=== PATIENT | female | born 1945 | race Caucasian/White ===

== ENCOUNTER 2019-06-22 06:38 | Inpatient (IN) ==
[2019-06-16 17:50] LABS: Basophils # (Auto) 0 K/mcL (0.0-0.3); Basophils % (Auto) 0.3 % (0.0-2.0); Eosinophils # (Auto) 0.2 K/mcL (0.0-0.7); Eosinophils % (Auto) 3.1 % (0.0-7.0); Granulocytes % (Auto) 61.6 % (38.0-78.0); Hematocrit 36.6 % (36.0-48.0); Hemoglobin 12.2 g/dL (12.0-15.0); Lymphocytes # (Auto) 1.8 K/mcL (1.5-4.8); Lymphocytes % (Auto) 28.9 % (15.5-49.0); Mean Cell Volume 89.3 fL (80.0-100.0); Mean Corpuscular HGB Conc 33.3 g/dL (31.0-36.0); Mean Platelet Volume 10.1 fL (7.4-10.4); Monocytes # (Auto) 0.4 K/mcL (0.1-0.9); Monocytes % (Auto) 6.1 % (1.0-12.0); Platelet Count 135 K/mcL (140-440); Red Cell Distribution Width 14.3 % (11.5-14.5); WBC 6.1 K/mcL (4.5-11.0)
[2019-06-16 17:57] LABS: Blood Urea Nitrogen 15 mg/dl (8-23); Calcium 9.6 mg/dl (8.6-10.4); Carbon Dioxide 32 mmol/L (22-30); Chloride 99 mmol/L (96-108); Glomerular Filtration Rate 103; Glucose 98 mg/dL (70-105)
[2019-06-16 18:05] LABS: Estimated Average Glucose(eAG) 111 mg/dL; Hemoglobin A1C 5.5 % HGB (4.0-6.0)
[2019-06-16 18:36] LABS: Appearance,Urine HAZY; Bacteria,Urine 0 /hpf (0); Bilirubin,Urine NEG (NEG); Color,Urine YELLOW; Culture Indicated,Urine NO; Glucose,Urine (UA) NEGATIVE (NEG); Ketones,Urine NEG (NEG); Leukocyte Esterase,Urine 250 /uL (NEG); Mucus,Urine FEW /hpf (0); Nitrate,Urine NEG (NEG); Protein,Urine 30 mg/dL (NEG); Specific Gravity,Urine 1.023 (1.000-1.035); Urine Blood NEG mg/dL (<0.03); Urine Hyaline Cast 5 /lpf (0-2); Urine RBC 4 /hpf (0-1); Urine Squamous Epithelial Cell 14 /hpf (0-4); Urine Transitional Epi Cells < 1 /hpf (0-2); Urine WBC 17 /hpf (0-4)
[~2019-06-22 06:38] MED LIST: 0.9 % SODIUM CHLORIDE 9 ML, KETOROLAC 30 MG, ROPIVACAINE HCL/PF 49.5 ML, EPINEPHrine 0.... IJ SCH; CELECOXIB 200 MG CAPSULE PO SCH; IPRATROPIUM/ALBUTEROL 3 ML AMPUL.NEB NEB PRN; PREGABALIN 75 MG CAPSULE PO SCH; SCOPOLAMINE 1 PATCH PATCH TOPICAL PRN; ceFAZolin 2 GM in DEXTROSE 5% IN WATER 50 ML IV SCH; oxyCODONE 10 MG TAB.ER.12H PO SCH
[2019-06-22 09:29] LABS: Appearance,Urine CLOUDY; Bilirubin,Urine NEG (NEG); Color,Urine YELLOW; Culture Indicated,Urine NO; Glucose,Urine (UA) NEGATIVE (NEG); Ketones,Urine NEG (NEG); Leukocyte Esterase,Urine NEG /uL (NEG); Nitrate,Urine NEG (NEG); Protein,Urine NEG (NEG); Urine Blood NEG mg/dL (<0.03)
[2019-06-22] MEDS ORDERED: PROPOFOL 200 MG/20 ML VIAL IV ONE (13:40)
[2019-06-22] MEDS ORDERED: ONDANSETRON 4 MG/2 ML VIAL IV ONE (13:40)
[2019-06-22] MEDS ORDERED: KETAMINE 100 MG/ML ML IV ONE (13:40)
[2019-06-22] MEDS ORDERED: LIDOCAINE HCL/PF 100 MG/5 ML SYRINGE IV ONE (13:40)
[2019-06-22] MEDS ORDERED: ROPIVACAINE HCL/PF 20 ML VIAL IJ ONE (13:40)
[2019-06-22] MEDS ORDERED: ePHEDrine 50 MG/ML AMPUL IV ONE (13:40)
[2019-06-22] MEDS ORDERED: DEXAMETHASONE 10 MG/ML VIAL IV ONE (13:40)
[2019-06-22] MEDS ORDERED: TRANEXAMIC ACID 1,000 MG/10 ML VIAL IV ONE ×2 (13:40→15:06)
[2019-06-22] MEDS ORDERED: LACTATED RINGERS 250 ML IV PRN (15:05)
[2019-06-22] MEDS ORDERED: ACETAMINOPHEN 1,000 MG/100 ML BOTTLE IV ONE (15:05)
[2019-06-22] MEDS ORDERED: ONDANSETRON 4 MG/2 ML VIAL IV PRN ×2 (15:05→15:06)
[2019-06-22] MEDS ORDERED: NALOXONE HCL 0.4 MG/ML VIAL IV PRN (15:05)
[2019-06-22] MEDS ORDERED: MEPERIDINE 25 MG/ML SYRINGE IV PRN (15:05)
[2019-06-22] MEDS ORDERED: fentaNYL 100 MCG/2 ML VIAL IV PRN (15:05)
[2019-06-22] MEDS ORDERED: diphenhydrAMINE 50 MG/ML VIAL IV PRN (15:05)
[2019-06-22] MEDS ORDERED: BENZOCAINE/MENTHOL 1 LOZENGE PO PRN ×2 (15:05→15:06)
[2019-06-22] MEDS ORDERED: PROMETHAZINE 25 MG/ML VIAL IV PRN (15:05)
[2019-06-22] MEDS ORDERED: IPRATROPIUM/ALBUTEROL 3 ML AMPUL.NEB NEB PRN (15:05)
[2019-06-22] MEDS ORDERED: FLUMAZENIL 0.1 MG/ML ML IV PRN (15:05)
[2019-06-22] MEDS ORDERED: POLYETHYLENE GLYCOL 3350 17 GM PACKET PO PRN (15:06)
[2019-06-22] MEDS ORDERED: FLEETS ADULT ENEMA PR PRN (15:06)
[2019-06-22] MEDS ORDERED: MAGNESIUM HYDROXIDE 30 ML ORAL.SUSP PO PRN (15:06)
[2019-06-22] MEDS ORDERED: BISACODYL 10 MG SUPP.RECT PR PRN (15:06)
--- NOTE | 2019-06-22 15:06 | Brief Operative Note ---
Date of procedure: 06/22/19 Pre-op diagnosis: R knee severe DJD Post-op diagnosis: same Procedure: Right robotic assisted total knee arthroplasty Grafts/Implants: Yes (Asael Triathlon 4 CR femur, 4 tibia, 11mm CS insert, 33 patella) Anesthesia: spinal, GLMA Findings: severe arthritis Complications: none Surgeon: Fernando Sena Mobile Game Engineer: Zheng Driscoll Estimated blood loss (cc): 30 Specimens Removed/Pathology: none sent Condition: stable Disposition: PACU
[2019-06-22] MEDS ORDERED: LACTATED RINGERS 1,000 ML IV SCH (15:15)
--- NOTE | 2019-06-22 16:17 | XRay Report ---
CLINICAL INFORMATION: Post-op total knee. COMPARISON: None. FINDINGS: Total knee prostheses is anatomically aligned. No osseous abnormality. Periarticular gas and soft tissue swelling seen as expected. IMPRESSION: Negative Interpreted and Authenticated by: Ulysses Thompson 06/22/19
--- NOTE | 2019-06-22 16:46 | Operative Note ---
DATE OF OPERATION: 06/22/2019 PREOPERATIVE DIAGNOSIS: Right severe knee osteoarthritis. POSTOPERATIVE DIAGNOSIS: Right severe knee osteoarthritis. PROCEDURE PERFORMED: Right robotic-assisted total knee arthroplasty placing a Asael Triathlon size 4 cruciate retaining femoral component, size 4 tibial baseplate, an 11 mm CS tibial insert with a 33 mm patellar button. SURGEON: Fernando Sena M.D. STAPLER HAND: Billy Driscoll PA-C. The PA's assistance was required for the safe and efficient completion of the entire case. This provider's expertise and technical skill were required throughout the case. The PA assisted with preoperative coordination, intraoperative retraction, wound closure, dressing and splint application, as well as postoperative documentation and care coordination. ANESTHESIA: Spinal plus general. DRAINS: None. SPECIMENS: Bone cuts which were discarded. BLOOD LOSS: 50 mL. COMPLICATIONS: None. POSTOPERATIVE CONDITION: Stable. INDICATIONS FOR SURGERY: This is a 73-year-old female with longstanding right-sided knee pain. Radiographs showed severe [id number] osteoarthritis. FINDINGS AT SURGERY: Severe arthritis. Post implantation showed good limb alignment, joint stability, and patellar tracking. PROCEDURE IN DETAIL: The patient had been seen preoperatively. Informed consent had been obtained after discussion of risks and benefits of surgery. Risks including, but not limited to, bleeding, possibly requiring transfusion; infection, possibly requiring implant removal and prolonged IV antibiotics; injury to nerves, blood vessels, and other surrounding structures; anesthetic risks; incomplete or no resolution of symptoms; swelling; stiffness; pain; instability; DVT and pulmonary embolus risks; and the possibility of needing further revision joint surgery. She understood and wished to proceed. Correct operative site was marked in preoperative holding, and patient was taken to the operating room and general anesthesia was induced. The right lower knee was then prepped and draped in normal sterile fashion, and a time-out was performed verifying patient name, operative site, and plan. Ioban was placed over all skin surfaces and an Esmarch was used to exsanguinate the extremity, and tourniquet was inflated to 350 mmHg. A midline incision was made with a scalpel through skin and subcutaneous tissue, then Irrisept was irrigated and a medial parapatellar arthrotomy was made, and then a subperiosteal exposure was done of the anterior medial tibia. Anterior horns of the menisci removed, as well as retropatellar fat pad. ACL was transected. We then did a resection of the patella freehand, premeasuring thickness and then placing a cut protector after. We then placed our femoral and tibial checkpoints, and then a scalpel was used to make two stab incisions over the femur and two over the tibia and bicortical pins placed. The arrays were connected. The green probe was used to identify medial and lateral malleoli and double-checks were made with the green probe of the femoral and tibial check points. Blue probe was then used to do our mapping. A rongeur was used to remove osteophytes. We then used the spoons to check our flexion-extension gaps and made adjustments to get as close to 17 mm gaps on all four numbers as possible. Once this was completed, we then used the robotic arm to make our bone cuts. The tibia was prepared with the boss reamer and keel punch and externally rotated as bone coverage would allow. A keeled tibial trial was placed, and the femur was elevated. Curved osteotome and curet were used to remove posterior osteophytes. Femoral trial was then impacted and pinned into place. This was placed flush along the lateral cortex of the femur and then peg holes were drilled. A 9 insert trial was placed and then the knee was taken into extension. We then prepared the patella medializing maximally and sized this to a 33 patella. We then checked the patellar tracking and it was stable. We then removed trial implants. Definitive implants were opened while the joint was irrigated with Irrisept. After waiting a minute, we pulse lavaged with saline. Antibiotic cement was mixed and then the cancellous bone surfaces were dried with the CO2 gun. We then cemented the tibia, followed by the femur. Excess cement was removed, and the trial insert was placed, and the knee was taken into extension. The patella was then cemented. After excess cement was removed, we filled the joint with Irrisept. The tibial and femoral check points were removed. The extension was checked and then we removed our arrays and our pins. We injected pain cocktail in the pericapsular and subcutaneous tissues. Once cement had fully hardened, we flexed the knee up. We removed the insert trial, injected pain cocktail in the posteromedial capsule. We then opened an 11 mm CS insert, and this was carefully impacted and verified to be fully seated. The knee was then placed in extension and filled with Irrisept. After a minute it was copiously pulse lavaged with saline. We then flexed the knee to 45 degrees of flexion. A #2 FiberWire [id number] was used around the superior quadrant of the patella, #1 Vicryl [id number] around the inferior quadrant. Running #1 Vicryl was used for patellar tendon and quad tendon. Final Irrisept irrigation was done, after a minute final pulse lavage, and then 2-0 Monocryl was used for subcutaneous and sruthi for skin. Xeroform and sterile dressing were applied. Tourniquet was released. The patient was awakened, extubated, and transferred to recovery in stable condition. [email or web address] Job ID: [id number] Doc ID: [id number] Fernando Sena MD
[2019-06-22] MEDS: KETOROLAC 15 MG/ML VIAL IV SCH ×2 (17:40→23:57)
[2019-06-22] MEDS: 0.9 % SODIUM CHLORIDE 1,000 ML IV SCH (17:41)
[2019-06-22] MEDS: SIMVASTATIN 40 MG TABLET PO SCH (20:51)
[2019-06-22] MEDS: oxyCODONE/APAP 5/325MG TABLET PO PRN (20:51)
[2019-06-22] MEDS: ASPIRIN 325 MG ENTERIC COATED TABLET PO SCH (20:51)
[2019-06-22] MEDS: PREGABALIN 150 MG CAPSULE PO SCH (20:51)
[2019-06-22] MEDS: ceFAZolin 1 GM VIAL IV SCH (20:51)
[2019-06-22] MEDS: SENNOSIDES 1 TABLET PO SCH (20:51)
[2019-06-22] MEDS: DOCUSATE SODIUM 100 MG CAPSULE PO SCH (20:51)
[2019-06-22] MEDS: 0.9 % SODIUM CHLORIDE 10 ML SYRINGE IV SCH (20:52)
[2019-06-23] MEDS: 0.9 % SODIUM CHLORIDE 1,000 ML IV SCH ×2 (00:29→13:04)
[2019-06-23] MEDS: oxyCODONE/APAP 5/325MG TABLET PO PRN ×6 (00:48→23:42)
[2019-06-23] MEDS: 0.9 % SODIUM CHLORIDE 10 ML SYRINGE IV SCH ×3 (04:30→21:19)
[2019-06-23] MEDS: ceFAZolin 1 GM VIAL IV SCH (04:30)
[2019-06-23] MEDS: KETOROLAC 15 MG/ML VIAL IV SCH ×4 (06:02→23:37)
--- NOTE | 2019-06-23 07:47 | Orthopedic Progress Note ---
Orthopedics - Auxillary Note - Subjective Patient Information: Note initiated : 06/23/19 at 7:45 am Service Date, if different from initiated Date: [] Patient: Myesha Zepeda 73 y/o F admitted on 06/22/19 for Right Total Knee Arthroplasty Michael. Chief Complaint: Pt doing well, mild pain. Bandages C/D/I NVI-distal Vital Signs Temp Pulse Resp BP Pulse Ox 06/23/19 04:00 98.4 F 74 22 128/65 95 06/23/19 00:00 98.0 F 86 24 H 108/62 89 L 06/22/19 21:22 97.9 F 82 18 144/75 96 06/22/19 20:52 92 H 124/71 93 06/22/19 19:52 77 138/72 94 06/22/19 18:52 77 150/77 94 06/22/19 18:12 78 148/74 96 06/22/19 17:43 82 139/65 96 06/22/19 17:15 70 18 149/89 99 06/22/19 17:00 67 18 148/65 98 06/22/19 16:30 76 16 151/75 98 06/22/19 16:15 97.0 F 63 16 131/63 96 06/22/19 15:55 97.1 F 63 14 129/46 99 06/22/19 15:40 97.0 F 68 16 128/65 99 06/22/19 15:35 72 12 130/60 100 06/22/19 15:30 74 14 156/61 98 06/22/19 15:24 98.1 F 76 17 154/67 98 06/22/19 08:00 97.6 F 18 128/70 93 Intake and Output 06/22/19 06/23/19 06/23/19 21:59 05:59 13:59 Intake Total 2550 728 Output Total 400 600 Balance 2150 128 Intake: IV 150 528 Sodium Chloride 0.9% 1,000 ml @ 528 100 mls/hr IV .Q10H HERIBERTO Rx#: [id number] Ancef 2 gm In Dextrose 5% in 50 Water 50 ml @ 100 mls/hr IV PREOP HERIBERTO Rx#:[id number] Oral 800 200 IV - Manual Only 1600 Output: Void Amount 400 600 Other: Meal Dinner Percent of Meal Consumed 100% Urine Appearance Clear Clear Urine Color Dark Yellow Dark Yellow Weight 258 lb 6.4 oz Laboratory Results - last 24 hr 06/22/19 09:15 Urine Color Yellow Urine Appearance Cloudy Urine pH 5.0 Ur Specific [place] 1.020 Urine Protein Neg Urine Glucose (UA) Negative Urine Ketones Neg Urine Occult Blood Neg Urine Nitrate Neg Urine Bilirubin Neg Urine Urobilinogen 2.0 A Ur Leukocyte Esterase Neg Ur Culture Indicated? No s/p R TKA-stable mobilize with PT. tentative discharge 1-2 days
[2019-06-23] MEDS: FUROSEMIDE 40 MG TABLET PO SCH (09:11)
[2019-06-23] MEDS: LOSARTAN 50 MG TABLET PO SCH (09:11)
[2019-06-23] MEDS: ASCORBIC ACID 500 MG TABLET PO SCH (09:11)
[2019-06-23] MEDS: DOCUSATE SODIUM 100 MG CAPSULE PO SCH ×2 (09:11→21:19)
[2019-06-23] MEDS: ASPIRIN 325 MG ENTERIC COATED TABLET PO SCH ×2 (09:11→21:19)
[2019-06-23] MEDS: PREGABALIN 150 MG CAPSULE PO SCH ×2 (09:11→21:19)
[2019-06-23] MEDS: SIMVASTATIN 40 MG TABLET PO SCH (21:19)
[2019-06-23] MEDS: SENNOSIDES 1 TABLET PO SCH (21:19)
[2019-06-24] MEDS: KETOROLAC 15 MG/ML VIAL IV SCH ×2 (05:52→12:18)
[2019-06-24] MEDS: 0.9 % SODIUM CHLORIDE 10 ML SYRINGE IV SCH (05:52)
--- NOTE | 2019-06-24 08:55 | Discharge Summary ---
Providers - Providers Patient information: Note initiated : 06/24/19 at 8:51 am Service Date, if different from initiated Date: [] Patient: Myesha Zepeda 73 y/o F admitted on 06/22/19 for Right Total Knee Arthroplasty Michael. Chief Complaint: [] Discharge date: 06/24/19 Hospitalization Hospital Course: Pt was admitted for a R TKA. Pt underwent the procedure on the day of admission. Pt then transferred to the floor for IV pain Meds, IV abx, and PT. Pt discharged to home post-op day 2. Will take ASA for DVT prophylaxis. f/u in 2 weeks. Discharge diagnosis: R knee OA Exam - Exam Clean and dry: Yes Weight bearing status: as tolerated Ortho Discharge - TKA - Patient Instructions Diet: Regular Diet Activity: activity as tolerated Total Knee Protocol: For Total Knee: Start ROM SHANNON with stationary bike or rocking chair. Work on gaining full extension of knee. Posterior dislocation precautions provided. Hip abductor strengthening and gait training instructions provided. Apply Cryocuff as instructed. Dressing Care: May shower in 2 days - Follow Up Plan Disposition: Home, Self-Care Prognosis: Good Rehab Potential: Good Overall status at discharge: patient is progressing back to baseline - Orders For Discharge Prescriptions: Aspirin [Lo-Dose Aspirin EC] 81 mg PO BID #30 Prescription Printed Hydrocodone/APAP 7.5/325Mg [[place] 7.5-325Mg] 1 - 2 tab PO Q6HP PRN #70 tab PRN Reason: Pain Prescription Printed Pending Studies Resuscitation Status Full Code Diet Consistent Carbohydrate Diet Start ThuJun 22 1507 Ascorbic Acid (Vitamin C) 1,000 mg PO DAILY [facility] Last Admin: 06/23/19 09:11 Dose: 1,000 mg Documented by: [email or web address] Aspirin (Ecotrin) 325 mg PO BID [facility] Last Admin: 06/23/19 21:19 Dose: 325 mg Documented by: LUIS F Admin: 06/23/19 09:11 Dose: 325 mg Documented by: [email or web address] Admin: 06/22/19 20:51 Dose: 325 mg Documented by: LUIS F Docusate Sodium (Colace) 100 mg PO BID [facility] Last Admin: 06/23/19 21:19 Dose: 100 mg Documented by: LUIS F Admin: 06/23/19 09:11 Dose: 100 mg Documented by: [email or web address] Admin: 06/22/19 20:51 Dose: 100 mg Documented by: LUIS F Furosemide (Lasix) 40 mg PO DAILY [facility] Last Admin: 06/23/19 09:11 Dose: 40 mg Documented by: LESLI Ketorolac Tromethamine (Toradol) 15 mg IV Q6 [facility] Stop: 06/24/19 12:01 Last Admin: 06/24/19 05:52 Dose: 15 mg Documented by: LUIS F Admin: 06/23/19 23:37 Dose: 15 mg Documented by: LUIS F Admin: 06/23/19 17:52 Dose: 15 mg Documented by: Admin: 06/23/19 12:41 Dose: 15 mg Documented by: Admin: 06/23/19 06:02 Dose: 15 mg Documented by: LUIS F Admin: 06/22/19 23:57 Dose: 15 mg Documented by: LUIS F Admin: 06/22/19 17:40 Dose: 15 mg Documented by: SKYLER Losartan Potassium (Cozaar) 50 mg PO DAILY [facility] Last Admin: 06/23/19 09:11 Dose: 50 mg Documented [facility]: [email or web address] Magnesium Hydroxide (Milk Of Magnesia) 30 ml PO BIDP PRN PRN Reason: Constipation Last Admin: 06/23/19 21:19 Dose: 30 ml Documented by: LUIS F Oxycodone/Acetaminophen (Percocet 5-325 Mg) 0 tab PO Q4HP PRN PRN Reason: PAIN LEVEL 3-6 Last Admin: 06/23/19 23:42 Dose: 2 tab Documented by: LUIS F Admin: 06/23/19 17:39 Dose: 2 tab [facility]ed [facility]: [email or web address] Admin: 06/23/19 13:12 Dose: 2 tab [facility]ed [facility]: [email or web address] Admin: 06/23/19 09:11 Dose: 2 tab [facility]ed [facility]: [email or web address] Admin: 06/23/19 04:57 Dose: 1 tab Documented by: LUIS F Admin: 06/23/19 00:48 Dose: 1 tab Documented by: LUIS F Admin: 06/22/19 20:51 Dose: 1 tab Documented by: LUIS F Letrozole [Femara] 2 (.5 Mg Tab) 1 dose PO Q48H [facility] Last Admin: 06/23/19 11:19 Dose: 1 dose Documented by: TMEYER Trelegy Ellipta (Inhaler) 1 dose INH DAILY [facility] Last Admin: 06/23/19 09:12 Dose: 1 dose Documented [facility]: [email or web address] Polyethylene Glycol (Miralax) 17 gm PO DAILYP PRN PRN Reason: Constipation Last Admin: 06/23/19 17:40 Dose: 17 gm Documented by: [email or web address] Pregabalin (Lyrica) 150 mg PO BID [facility] Last Admin: 06/23/19 21:19 Dose: 150 mg Documented by: LUIS F Admin: 06/23/19 09:11 Dose: 150 mg Documented by: [email or web address] Admin: 06/22/19 20:51 Dose: 150 mg Documented by: LUIS F Senna (Senokot) 2 tab PO [facility] Last Admin: 06/23/19 21:19 Dose: 2 tab Documented by: LUIS F Admin: 06/22/19 20:51 Dose: 2 tab Documented by: LUIS F Simvastatin (Zocor) 40 mg PO HS [facility] Last Admin: 06/23/19 21:19 Dose: 40 mg Documented by: LUIS F Admin: 06/22/19 20:51 Dose: 40 mg Documented by: LUIS F Sodium Chloride (Saline Flush) 10 ml IV Q8 [facility] Last Admin: 06/24/19 05:52 Dose: 10 ml Documented by: LUIS F Admin: 06/23/19 21:19 Dose: 10 ml Documented by: LUIS F Admin: 06/23/19 13:08 Dose: 10 ml Documented [facility]: [email or web address] Admin: 06/23/19 04:30 Dose: 10 ml Documented by: LUIS F Admin: 06/22/19 20:52 Dose: Not Given Documented by: LUIS F Shift Summary 06/24/19 04:15 Shift Summary by Latesha Becerra A&O x4. Pt did not sleep much this shift. She was having abdominal cramping/gas/bloated/feeling uncomfortable at the beginning of shift and was concerned about constipation - requested medications to help have a BM. Pt was given milk of magnesia and prune juice with butter. Pt then had 5 large BMs. Up with SBA, FWW, and GB. Pt is very steady on feet. Ambulated in sanchez x1 this shift. Percocet 2 tabs given x1 for pain this shift along with scheduled toradol. Wears 2-3L O2 at home, 2.5L bled into CPAP - maintains saturations ot herwise VSS. 18G IV to the L hand is SL and patent. Hx of R lower lobectomy and R mastectomy - no B/P or lab draws to that side. Will update at bedside. Initialized on 06/24/19 04:15 - END OF NOTE
[2019-06-24] MEDS: ASCORBIC ACID 500 MG TABLET PO SCH (09:57)
[2019-06-24] MEDS: PREGABALIN 150 MG CAPSULE PO SCH (09:57)
[2019-06-24] MEDS: DOCUSATE SODIUM 100 MG CAPSULE PO SCH (09:57)
[2019-06-24] MEDS: ASPIRIN 325 MG ENTERIC COATED TABLET PO SCH (09:57)
[2019-06-24] MEDS: LOSARTAN 50 MG TABLET PO SCH (09:57)
[2019-06-24] MEDS: FUROSEMIDE 40 MG TABLET PO SCH ×2 (09:57→10:00)
[2019-06-24] MEDS: oxyCODONE/APAP 5/325MG TABLET PO PRN (13:08)
== END 2019-06-24 14:00 | disposition home or self-care (01) | DRG 470 ==
LOC: MEDSUR 06:38
PROVIDERS: ADMIT Orthopaedic Surgery; ATTEND Orthopaedic Surgery